=== PATIENT | male | born 1940 | race Caucasian/White ===

== ENCOUNTER 2020-01-30 17:34 | Inpatient (IN) ==
[2020-01-30 18:03] LABS: Basophils % 0.3 %; Eosinophils # 0.1 K/mcL (0.0-0.6); Eosinophils % 0.8 %; Hematocrit 36.9 % (37.5-50.1); Hemoglobin 12.8 g/dL (12.9-16.9); Immature Granulocytes % 0.5 % (0-4); Lymphocytes # 1.1 K/mcL (0.6-4.6); Lymphocytes % 10.9 %; Mean Corpuscular HGB Conc 34.7 g/dL (31.6-35.5); Mean Corpuscular Hemoglobin 30.1 pg (28.0-33.3); Mean Corpuscular Volume 86.8 fL (83.0-100.0); Mean Platelet Volume 10.7 fL (9.4-12.4); Monocytes # 0.5 K/mcL (0.0-1.3); Monocytes % 5.3 %; Platelet Count 204 K/mcL (140-400); Red Blood Count 4.25 M/mcL (4.19-5.50); Red Cell Distribution Width 14.1 % (11.5-14.5); Segmented Neutrophils % 82.2 %; White Blood Count 9.7 K/mcL (4.3-11.1)
[2020-01-30 18:18] LABS: Albumin 4.2 g/dL (3.5-5.7); Albumin/Globulin Ratio 1.1 (1.1-2.2); Bilirubin,Total 0.5 mg/dL (0.3-1.0); Calcium 9.3 mg/dL (8.6-10.3); Globulin 3.8 g/dL (2.4-3.5)
[2020-01-30] MEDS ORDERED: *HR* Dextrose 50 % in Water (Vial) 50 ML VIAL IVP ONE (20:05)
[2020-01-30] MEDS ORDERED: Insulin Human Regular 10 UNIT in 0.9 % Sodium Chloride 10 ML IV ONE (20:05)
[2020-01-30] MEDS ORDERED: Furosemide 40 MG/4 ML VIAL IVP ONE (20:06)
[2020-01-30] MEDS ORDERED: Calcium Gluconate 1gm/50mL 1 GM/50 ML BAG IVPB ONE (20:07)
[2020-01-30] MEDS ORDERED: *HR* Dextrose 50 % in Water (Syg) 50 ML SYRINGE IVP ONE (20:35)
[2020-01-30] MEDS ORDERED: Insulin DETEMIR 100 UNIT/ML per UNIT SQ ONE (21:30)
[2020-01-30] MEDS ORDERED: Naloxone 0.4 MG/ML INJ IVP PRN (21:30)
[2020-01-30] MEDS ORDERED: Sennosides/Docusate Sodium TABLET PO PRN (21:30)
[2020-01-30] MEDS ORDERED: NON-FORMULARY MEDICATION 1 EACH EACH (Metformin Hcl [Glucophage Xr] 750 MG) PO SCH (21:30)
[2020-01-30] MEDS: 0.9 % Sodium Chloride 1,000 ML IVC SCH (22:30)
[2020-01-30 22:47] LABS: Calcium 9.2 mg/dL (8.6-10.3); Potassium 6.1 mEq/L (3.5-5.1)
[2020-01-30] MEDS: Gabapentin 100 MG CAPSULE PO SCH (23:55)
[2020-01-30] MEDS: Melatonin 3 MG TABLET PO SCH (23:56)
[2020-01-30] MEDS: hydrOXYzine pamoate 25 MG CAPSULE PO SCH (23:57)
[2020-01-30] MEDS: carvediloL 25 MG TABLET PO SCH (23:57)
[2020-01-31] MEDS: Magnesium Oxide 400 MG TABLET PO SCH ×3 (00:04→20:46)
[2020-01-31] MEDS ORDERED: Insulin DETEMIR 100 UNIT/ML per UNIT SQ ONE (00:15)
[2020-01-31] MEDS ORDERED: 0.9 % Sodium Chloride 500 ML IVC ONE (00:39)
[2020-01-31] MEDS ORDERED: D5% in Water 1,000 ML IVC PRN (00:52)
[2020-01-31] MEDS ORDERED: *HR* Dextrose 50 % in Water (Vial) 50 ML VIAL IVP PRN (00:52)
[2020-01-31] MEDS ORDERED: Dextrose Gel 15 GM/37.5 ML TUBE PO PRN ×2 (00:52)
[2020-01-31] MEDS: Insulin LISPRO 300 UNITS/3 ML VIAL SQ SCH ×7 (01:22→20:47)
[2020-01-31 05:08] LABS: Basophils % 0.4 %; Eosinophils # 0.1 K/mcL (0.0-0.6); Eosinophils % 1.8 %; Hematocrit 32.4 % (37.5-50.1); Immature Granulocytes % 0.5 % (0-4); Lymphocytes % 26.5 %; Mean Corpuscular HGB Conc 34.9 g/dL (31.6-35.5); Mean Corpuscular Volume 85.9 fL (83.0-100.0); Mean Platelet Volume 11.1 fL (9.4-12.4); Monocytes # 0.7 K/mcL (0.0-1.3); Monocytes % 8.8 %; Neutrophils # 4.7 K/mcL (1.6-8.9); Platelet Count 200 K/mcL (140-400); Red Blood Count 3.77 M/mcL (4.19-5.50); Red Cell Distribution Width 14.1 % (11.5-14.5); White Blood Count 7.6 K/mcL (4.3-11.1)
[2020-01-31 05:09] LABS: Hemoglobin 11.3 g/dL (12.9-16.9)
[2020-01-31 05:24] LABS: Calcium 8.8 mg/dL (8.6-10.3); Potassium 5.6 mEq/L (3.5-5.1)
[2020-01-31] MEDS: 0.9 % Sodium Chloride 1,000 ML IVC SCH (06:28)
[2020-01-31] MEDS ORDERED: lisinopriL 20 MG TABLET PO SCH (09:00)
[2020-01-31] MEDS: Finasteride 5 MG TABLET PO SCH (09:45)
[2020-01-31] MEDS: hydrOXYzine pamoate 25 MG CAPSULE PO SCH ×3 (09:45→20:46)
[2020-01-31] MEDS: carvediloL 25 MG TABLET PO SCH ×2 (09:45→20:47)
[2020-01-31] MEDS: Gabapentin 100 MG CAPSULE PO SCH ×3 (09:46→20:44)
[2020-01-31] MEDS: (Mirabegron [Myrbetriq] 50 MG) PO SCH (09:47)
[2020-01-31] MEDS: (Ezetimibe [Zetia] 10 MG) PO SCH (09:47)
[2020-01-31] MEDS: Insulin DETEMIR 100 UNIT/ML X5UNITS SQ SCH ×2 (09:47→20:47)
[2020-01-31] MEDS: CYANOCOBALAMIN PO SCH (09:47)
[2020-01-31 17:23] LABS: Calcium 8.4 mg/dL (8.6-10.3); Potassium 5.1 mEq/L (3.5-5.1)
[2020-01-31] MEDS ORDERED: metOLazone 2.5 MG TABLET PO SCH (20:16)
[2020-01-31] MEDS: Melatonin 3 MG TABLET PO SCH (20:46)
[2020-01-31 21:15] LABS: Bilirubin,Urine Negative (Negative); Blood,Urine Small (Negative); Clarity,Urine Clear (Clear); Color,Urine Yellow (Yellow); Glucose,Urine (UA) >=1000 mg/dL (Normal); Ketones,Urine Negative (Negative); Leukocyte Esterase,Urine Small (Negative); Nitrite,Urine Negative (Negative); Protein,Urine 30 mg/dL (Neg-Trace); Urobilinogen,Urine Normal (Normal)
[2020-01-31 21:37] LABS: RBC,Urine 0-3 per hpf (0-3); Squamous Epithelial Cell,Urine Few per hpf (None-Few); WBC,Urine 0-3 per hpf (0-3)
[2020-01-31 21:38] LABS: Bacteria,Urine None Seen per hpf (None-Few)
[2020-02-01 06:08] LABS: Basophils % 0.4 %; Eosinophils # 0.2 K/mcL (0.0-0.6); Eosinophils % 2.5 %; Hematocrit 32.6 % (37.5-50.1); Hemoglobin 11.1 g/dL (12.9-16.9); Immature Granulocytes % 0.4 % (0-4); Lymphocytes # 2.1 K/mcL (0.6-4.6); Lymphocytes % 30.7 %; Mean Corpuscular Hemoglobin 29.4 pg (28.0-33.3); Mean Corpuscular Volume 86.5 fL (83.0-100.0); Monocytes # 0.6 K/mcL (0.0-1.3); Monocytes % 9.3 %; Neutrophils # 3.9 K/mcL (1.6-8.9); Platelet Count 180 K/mcL (140-400); Red Blood Count 3.77 M/mcL (4.19-5.50); Segmented Neutrophils % 56.7 %; White Blood Count 6.9 K/mcL (4.3-11.1)
[2020-02-01 06:25] LABS: BUN/Creatinine Ratio 36 (6-26); Blood Urea Nitrogen 44 mg/dL (8-23); Calcium 8.7 mg/dL (8.6-10.3); Carbon Dioxide 25 mEq/L (23-29); Chloride 104 mEq/L (98-107); Glucose 159 mg/dL (70-105); Osmolality,Calculated 297 (280-300); Potassium 4.1 mEq/L (3.5-5.1); Sodium 136 mEq/L (136-145); eGFR For African Americans > 60 (> 60); eGFR For Non-African Americans 56 (> 60)
[2020-02-01] MEDS: Insulin LISPRO 300 UNITS/3 ML VIAL SQ SCH ×3 (08:28→12:48)
[2020-02-01] MEDS: Finasteride 5 MG TABLET PO SCH (08:29)
[2020-02-01] MEDS: Magnesium Oxide 400 MG TABLET PO SCH (08:30)
[2020-02-01] MEDS: hydrOXYzine pamoate 25 MG CAPSULE PO SCH (08:30)
[2020-02-01] MEDS: Gabapentin 100 MG CAPSULE PO SCH (08:30)
[2020-02-01] MEDS: carvediloL 25 MG TABLET PO SCH (08:31)
[2020-02-01] MEDS: Insulin DETEMIR 100 UNIT/ML X5UNITS SQ SCH (08:37)
[2020-02-01 11:32] VITALS: BP 108/57
[2020-02-01] MEDS: CYANOCOBALAMIN PO SCH (12:23)
[2020-02-01] MEDS: (Mirabegron [Myrbetriq] 50 MG) PO SCH (12:23)
[2020-02-01] MEDS: (Ezetimibe [Zetia] 10 MG) PO SCH (12:23)
[2020-02-02] MEDS ORDERED: CloNIDine Patch 0.1 MG PATCH (WEEKLY) TD SCH (20:16)
== END 2020-02-01 13:50 | disposition home or self-care (01) | DRG 641 ==
LOC: EMEROOGRE 17:34 → INPGRE 17:34 → SUATTDRO 20:56 → INPGRE 21:05
PROVIDERS: ADMIT Student in an Organized Health Care Education/Training Program; ATTEND Family Medicine

== ENCOUNTER 2020-07-19 13:05 | Inpatient (IN) ==
[2020-07-19] MEDS ORDERED: Isovue-370 500 ML BOTTLE IVP ONE (13:44)
[2020-07-19 14:02] LABS: Basophils % 0.5 %; Eosinophils # 0.1 K/mcL (0.0-0.6); Eosinophils % 2.2 %; Hematocrit 41.1 % (37.5-50.1); Hemoglobin 13.3 g/dL (12.9-16.9); Immature Granulocytes % 0.3 % (0-4); Lymphocytes # 1.3 K/mcL (0.6-4.6); Lymphocytes % 20.7 %; Mean Corpuscular HGB Conc 32.4 g/dL (31.6-35.5); Mean Corpuscular Hemoglobin 28.6 pg (28.0-33.3); Mean Corpuscular Volume 88.4 fL (83.0-100.0); Mean Platelet Volume 11.1 fL (9.4-12.4); Monocytes # 0.5 K/mcL (0.0-1.3); Monocytes % 8.2 %; Neutrophils # 4.4 K/mcL (1.6-8.9); Platelet Count 208 K/mcL (140-400); Red Blood Count 4.65 M/mcL (4.19-5.50); Red Cell Distribution Width 16.4 % (11.5-14.5); Segmented Neutrophils % 68.1 %; White Blood Count 6.4 K/mcL (4.3-11.1)
[2020-07-19 14:03] LABS: INR 2.5; Prothrombin Time 28.5 Seconds (9.4-12.1)
[2020-07-19 14:06] LABS: Activated Partial Thrombo Time 40.9 Seconds (26.0-36.0)
[2020-07-19 14:10] LABS: VBG HCO3 32 mEq/L (21-27); VBG PCO2 58 mmHg (41-51); VBG PH 7.36 pH Units (7.32-7.42); VBG PO2 49 mmHg (25-50)
[2020-07-19 14:13] LABS: Alanine Aminotransferase 11 Units/L (7-52); Albumin 4.1 g/dL (3.5-5.7); Albumin/Globulin Ratio 1.4 (1.1-2.2); Alkaline Phosphatase 73 Units/L (34-104); Aspartate Amino Transferase 14 Units/L (13-39); BUN/Creatinine Ratio 25 (6-26); Bilirubin,Total 0.5 mg/dL (0.3-1.0); Blood Urea Nitrogen 28 mg/dL (8-23); Calcium 9.3 mg/dL (8.6-10.3); Carbon Dioxide 32 mEq/L (23-29); Chloride 99 mEq/L (98-107); Glucose 199 mg/dL (70-105); Osmolality,Calculated 299 (280-300); Potassium 4.4 mEq/L (3.5-5.1); Sodium 139 mEq/L (136-145); Total Protein 7.1 g/dL (6.4-8.9); eGFR For African Americans > 60 (> 60); eGFR For Non-African Americans > 60 (> 60)
[2020-07-19] MEDS ORDERED: Isovue-370 500 ML BOTTLE PO ONE (14:34)
[2020-07-19] MEDS ORDERED: Furosemide 40 MG/4 ML VIAL IVP ONE (16:29)
[2020-07-19 18:30] LABS: Bilirubin,Urine Negative (Negative); Blood,Urine Small (Negative); Clarity,Urine Clear (Clear); Color,Urine Yellow (Yellow); Glucose,Urine (UA) Normal (Normal); Ketones,Urine Negative (Negative); Leukocyte Esterase,Urine Negative (Negative); Nitrite,Urine Negative (Negative); Protein,Urine 100 mg/dL (Neg-Trace); Urobilinogen,Urine Normal (Normal)
[2020-07-19] MEDS ORDERED: Sennosides/Docusate Sodium TABLET PO PRN (19:52)
[2020-07-19] MEDS ORDERED: Naloxone 0.4 MG/ML INJ IVP PRN (19:52)
[2020-07-19] MEDS ORDERED: MOM Conc 10 ML UD.LIQ PO ONE (19:52)
[2020-07-19] MEDS ORDERED: Acetaminophen 325 MG TABLET PO SCH (21:00)
[2020-07-19] MEDS ORDERED: metOLazone 2.5 MG TABLET PO SCH (22:00)
[2020-07-19] MEDS: carvediloL 25 MG TABLET PO SCH (22:42)
[2020-07-19] MEDS: Acetaminophen 325 MG TABLET PO SCH (22:42)
[2020-07-19] MEDS: Insulin LISPRO 300 UNITS/3 ML VIAL SUBQ SCH (22:42)
[2020-07-19] MEDS: Gabapentin 100 MG CAPSULE PO SCH (22:42)
[2020-07-19] MEDS: Finasteride 5 MG TABLET PO SCH (22:42)
[2020-07-19] MEDS: Melatonin 3 MG TABLET PO SCH (22:42)
[2020-07-19] MEDS: Magnesium Oxide 400 MG TABLET PO SCH (22:42)
[2020-07-19] MEDS: (Ezetimibe [Zetia] 10 MG Tablet) PO SCH (22:42)
[2020-07-19] MEDS: hydrOXYzine pamoate 25 MG CAPSULE PO SCH (22:43)
[2020-07-19] MEDS ORDERED: Insulin DETEMIR 100 UNIT/ML per UNIT SUBQ ONE (22:45)
[2020-07-20] MEDS: Gabapentin 100 MG CAPSULE PO SCH ×3 (08:22→22:46)
[2020-07-20] MEDS: Magnesium Oxide 400 MG TABLET PO SCH ×2 (08:23→22:46)
[2020-07-20] MEDS: Acetaminophen 325 MG TABLET PO SCH ×3 (08:23→22:45)
[2020-07-20] MEDS: Cyanocobalamin (B-12) 1,000 MCG TABLET PO SCH (08:23)
[2020-07-20] MEDS: hydrOXYzine pamoate 25 MG CAPSULE PO SCH (08:23)
[2020-07-20] MEDS: carvediloL 25 MG TABLET PO SCH ×2 (08:23→16:31)
[2020-07-20] MEDS: lisinopriL 20 MG TABLET PO SCH (08:23)
[2020-07-20] MEDS: *HR* Rivaroxaban 15 MG TABLET PO SCH (08:23)
[2020-07-20] MEDS: Insulin LISPRO 300 UNITS/3 ML VIAL SUBQ SCH ×3 (08:26→22:49)
[2020-07-20] MEDS: (Mirabegron [Myrbetriq] 50 MG Tab.Er.24h) PO SCH (08:26)
[2020-07-20] MEDS: Insulin DETEMIR 100 UNIT/ML X5UNITS SUBQ SCH ×2 (12:03→22:44)
[2020-07-20 12:08] LABS: ABG Base Excess 7 mEq/L (-2 to 3); ABG HCO3 35 mEq/L (21-27); ABG Oxygen Saturation 95 % (95-98); ABG PCO2 67 mmHg (35-45); ABG PH 7.33 pH Units (7.32-7.45); ABG PO2 82 mmHg (85-104); ABG TCO2 37 mEq/L (20-26)
[2020-07-20] MEDS: Furosemide 40 MG/4 ML VIAL IVP SCH ×2 (14:32→22:45)
[2020-07-20] MEDS: METFORMIN HCL 750 MG PO SCH (16:31)
[2020-07-20] MEDS ORDERED: *HR* Dextrose 50 % in Water (Vial) 50 ML VIAL IVP PRN (16:42)
[2020-07-20] MEDS ORDERED: D5% in Water 1,000 ML IVC PRN (16:42)
[2020-07-20] MEDS ORDERED: Dextrose Gel 15 GM/37.5 ML TUBE PO PRN ×2 (16:42)
[2020-07-20] MEDS ORDERED: Furosemide 40 MG/4 ML VIAL IVP SCH ×2 (17:00→21:00)
[2020-07-20] MEDS: levoFLOXacin 500 MG TABLET PO SCH (17:29)
[2020-07-20] MEDS ORDERED: Melatonin 3 MG TABLET PO ONE (22:32)
[2020-07-20] MEDS: Finasteride 5 MG TABLET PO SCH (22:45)
[2020-07-20] MEDS: Sennosides/Docusate Sodium TABLET PO SCH (22:46)
[2020-07-20] MEDS: (Ezetimibe [Zetia] 10 MG Tablet) PO SCH (22:47)
[2020-07-20] MEDS: Melatonin 3 MG TABLET PO SCH (22:47)
[2020-07-21 05:16] LABS: Hematocrit 38.4 % (37.5-50.1); Hemoglobin 11.9 g/dL (12.9-16.9); Mean Corpuscular Hemoglobin 27.6 pg (28.0-33.3); Mean Corpuscular Volume 89.1 fL (83.0-100.0); Mean Platelet Volume 10.9 fL (9.4-12.4); Platelet Count 196 K/mcL (140-400); Red Blood Count 4.31 M/mcL (4.19-5.50); Red Cell Distribution Width 16.4 % (11.5-14.5); White Blood Count 5.8 K/mcL (4.3-11.1)
[2020-07-21 05:35] LABS: Albumin 3.7 g/dL (3.5-5.7); Albumin/Globulin Ratio 1.5 (1.1-2.2); Bilirubin,Total 0.5 mg/dL (0.3-1.0); Calcium 8.5 mg/dL (8.6-10.3); Globulin 2.5 g/dL (2.4-3.5); Magnesium 2.5 mg/dL (1.6-2.6); Potassium 4.5 mEq/L (3.5-5.1); Total Protein 6.2 g/dL (6.4-8.9)
[2020-07-21 05:47] LABS: Thyroid Stimulating Hormone 3.403 mcIU/mL (0.340-5.600)
[2020-07-21] MEDS: Furosemide 40 MG/4 ML VIAL IVP SCH (08:11)
[2020-07-21] MEDS: carvediloL 25 MG TABLET PO SCH ×2 (08:12→17:08)
[2020-07-21] MEDS: Insulin LISPRO 300 UNITS/3 ML VIAL SUBQ SCH ×5 (08:12→20:42)
[2020-07-21] MEDS: (Mirabegron [Myrbetriq] 50 MG Tab.Er.24h) PO SCH (08:13)
[2020-07-21] MEDS: Acetaminophen 325 MG TABLET PO SCH ×3 (08:15→20:38)
[2020-07-21] MEDS: Cyanocobalamin (B-12) 1,000 MCG TABLET PO SCH (08:15)
[2020-07-21] MEDS: lisinopriL 20 MG TABLET PO SCH (08:15)
[2020-07-21] MEDS: *HR* Rivaroxaban 15 MG TABLET PO SCH (08:15)
[2020-07-21] MEDS: levoFLOXacin 500 MG TABLET PO SCH (08:15)
[2020-07-21] MEDS: Sennosides/Docusate Sodium TABLET PO SCH ×2 (08:15→20:39)
[2020-07-21] MEDS: Magnesium Oxide 400 MG TABLET PO SCH ×2 (08:16→20:37)
[2020-07-21] MEDS: Gabapentin 100 MG CAPSULE PO SCH ×3 (08:16→20:37)
[2020-07-21] MEDS: metOLazone 2.5 MG TABLET PO SCH (08:16)
[2020-07-21] MEDS: Insulin DETEMIR 100 UNIT/ML X5UNITS SUBQ SCH ×2 (08:19→20:40)
[2020-07-21 11:59] LABS: Estimated Average Glucose 229 mg/dl; Hemoglobin A1C 9.6 %
[2020-07-21] MEDS: Furosemide 20 MG TABLET PO SCH ×2 (14:23→16:12)
[2020-07-21] MEDS: METFORMIN HCL 750 MG PO SCH (17:12)
[2020-07-21 19:13] LABS: Calcium 8.2 mg/dL (8.6-10.3); Potassium 4.8 mEq/L (3.5-5.1)
[2020-07-21] MEDS: Doxycycline 100 MG CAPSULE PO SCH (20:36)
[2020-07-21] MEDS: Finasteride 5 MG TABLET PO SCH (20:38)
[2020-07-21] MEDS: (Ezetimibe [Zetia] 10 MG Tablet) PO SCH (20:39)
[2020-07-21] MEDS: Melatonin 3 MG TABLET PO SCH (20:41)
[2020-07-21] MEDS ORDERED: Melatonin 3 MG TABLET PO ONE (22:55)
[2020-07-22 05:01] LABS: Basophils % 0.4 %; Eosinophils # 0.1 K/mcL (0.0-0.6); Hematocrit 40.1 % (37.5-50.1); Hemoglobin 12.6 g/dL (12.9-16.9); Immature Granulocytes % 0.3 % (0-4); Lymphocytes # 1.4 K/mcL (0.6-4.6); Lymphocytes % 19.9 %; Mean Corpuscular HGB Conc 31.4 g/dL (31.6-35.5); Mean Corpuscular Hemoglobin 27.9 pg (28.0-33.3); Mean Corpuscular Volume 88.9 fL (83.0-100.0); Mean Platelet Volume 10.7 fL (9.4-12.4); Monocytes # 0.7 K/mcL (0.0-1.3); Monocytes % 9.9 %; Neutrophils # 4.7 K/mcL (1.6-8.9); Platelet Count 179 K/mcL (140-400); Red Blood Count 4.51 M/mcL (4.19-5.50); Red Cell Distribution Width 16.3 % (11.5-14.5); Segmented Neutrophils % 67.5 %
[2020-07-22 05:17] LABS: Calcium 8.6 mg/dL (8.6-10.3); Potassium 4.5 mEq/L (3.5-5.1)
[2020-07-22] MEDS: Insulin LISPRO 300 UNITS/3 ML VIAL SUBQ SCH ×3 (09:25→16:32)
[2020-07-22] MEDS: Magnesium Oxide 400 MG TABLET PO SCH (09:26)
[2020-07-22] MEDS: Doxycycline 100 MG CAPSULE PO SCH (09:27)
[2020-07-22] MEDS: Gabapentin 100 MG CAPSULE PO SCH ×2 (09:27→16:31)
[2020-07-22] MEDS: Acetaminophen 325 MG TABLET PO SCH ×2 (09:27→16:32)
[2020-07-22] MEDS: Furosemide 20 MG TABLET PO SCH ×3 (09:27→16:32)
[2020-07-22] MEDS: metOLazone 2.5 MG TABLET PO SCH (09:28)
[2020-07-22] MEDS: lisinopriL 20 MG TABLET PO SCH (09:28)
[2020-07-22] MEDS: carvediloL 25 MG TABLET PO SCH ×2 (09:28→16:32)
[2020-07-22] MEDS: *HR* Rivaroxaban 15 MG TABLET PO SCH (09:28)
[2020-07-22] MEDS: Cyanocobalamin (B-12) 1,000 MCG TABLET PO SCH (09:28)
[2020-07-22] MEDS: Sennosides/Docusate Sodium TABLET PO SCH (09:29)
[2020-07-22] MEDS: (Mirabegron [Myrbetriq] 50 MG Tab.Er.24h) PO SCH (09:29)
[2020-07-22] MEDS: Insulin DETEMIR 100 UNIT/ML X5UNITS SUBQ SCH (09:32)
[2020-07-22] MEDS ORDERED: Perflutren Lipid Microsphere 1.3 ML in 0.9 % Sodium Chloride 8.7 ML IVP PRN (11:41)
[2020-07-22] MEDS: METFORMIN HCL 750 MG PO SCH (17:22)
[2020-07-22 19:37] VITALS: BP 140/78
[2020-07-26] MEDS ORDERED: CloNIDine Patch 0.1 MG PATCH (WEEKLY) TD SCH (09:00)
== END 2020-07-22 20:40 | disposition home or self-care (01) | DRG 189 ==
LOC: EMEROOGRE 13:05 → INPGRE 13:05
PROVIDERS: ADMIT Family Medicine; ATTEND Family Medicine